=== PATIENT | female | born 1970 | race Caucasian/White ===

== ENCOUNTER → 2016-03-25 | Outpatient (CLI) | payer MEDICARE, MEDICAID ==
[~2016-03-25] MED LIST: ALBU17AE3 IH; AMLO1CAP8 PO; ASP325T PO; CANA100T; CANA100T PO; CATHETER FLUSH 10 ML SYR IV PRN; CEFD300C3 PO; CIPR500T4 PO; FLUT16SP22 NS; GLBR5T; GLIP5TAB13 PO; GUAI600T59 PO; IBP600T1 PO; INSU100C7 SQ; INSU100I29; INSU100V5 SQ; IOHEXOL 350 MG/ML 100 ML (OMNIPAQUE 350) VIAL IV ONE; LEVO500T2 PO; LEVO750T9 PO; LORA10TA7 PO; LOTREL; LRT10T; MECL-106 PO; MECL25TA56 PO; METF1000 PO; METR500T21 PO; MNTL10T; MONT10TA24 PO; MTF500T; NF-ESOM40C; NS 100 ML (IVPB) BAG IV ONE; OMG1KC PO; ONDAN4ODT PO; PERM59LI4 TP; PERM60CR17 TP; PHEN10TA56 PO
--- NOTE | 2016-03-25 13:38 | Diagnostic Imaging Report ---
PROCEDURE: CT abdomen and pelvis with contrast. TECHNIQUE: Multiple contiguous axial images were obtained through the abdomen and pelvis after administration of intravenous contrast. INDICATION: Flank and right lower quadrant pain. CONTRAST: 100 mL of Omnipaque 350 was given intravenously. COMPARISON STUDY: CT scan of the abdomen and pelvis from February 07. FINDINGS: Several new nodules are present in the left lung base. These measure up to 1 cm in size. Somewhat hazy. Previously, there are was a 5 mm nodule on image 6, which is unchanged. Some atelectasis in the left lung base is stable. Fatty infiltration of liver is again identified with no focal abnormalities. The gallbladder is absent. 9 mm lymph node is seen anterior to the right renal vein posterior to the pancreas. Previously this measured 12 mm. The spleen, pancreas, adrenal glands, kidneys appear normal. Mild arterial sclerosis is present. The uterus, adnexal structures and urinary bladder are normal. The bowel loops appear unremarkable. Degenerative changes are present in the spine. IMPRESSION: 1. There has been development of small pulmonary nodules in the left lung base. A previous nodule is unchanged in size. 2. Stable fatty infiltration of the liver. 3. Decreased size of the the lymph node anterior to the right renal vein. Dictated by: Dictated on workstation # [id number]
== END ==
LOC: RAD 12:52
PROVIDERS: ATTEND Family Medicine
DX: R91.8 Other nonspecific abnormal finding of lung field (principal); R10.31 Right lower quadrant pain
CPT/HCPCS: 74177

== ENCOUNTER 2016-04-08 05:47 | Outpatient (CLI) | payer MEDICARE, MEDICAID ==
[~2016-04-08] VITALS: Ht 165.1 cm; Wt 116.3 kg
[~2016-04-08 05:47] MED LIST changes: -CANA100T PO; -CATHETER FLUSH 10 ML SYR IV PRN; -GLIP5TAB13 PO; -INSU100V5 SQ; -IOHEXOL 350 MG/ML 100 ML (OMNIPAQUE 350) VIAL IV ONE; -LORA10TA7 PO; -METF1000 PO; -MONT10TA24 PO; -NS 100 ML (IVPB) BAG IV ONE
[2016-04-08] MEDS ORDERED: METF1000 PO (10:14)
[2016-04-08] MEDS ORDERED: GLIP5TAB13 PO (10:14)
[2016-04-08] MEDS ORDERED: LORA10TA7 PO (10:14)
[2016-04-08] MEDS ORDERED: CANA100T PO (10:14)
[2016-04-08] MEDS ORDERED: INSU100V5 SQ (10:14)
[2016-04-08] MEDS ORDERED: MONT10TA24 PO (10:14)
== END 2016-04-08 10:21 ==
LOC: PREOP 05:47
PROVIDERS: ATTEND Surgery
DX: Z01.818 Encounter for other preprocedural examination (principal)

== ENCOUNTER 2016-04-12 08:40 | Day surgery (SDC) | payer MEDICARE, MEDICAID ==
[~2016-04-12] VITALS: Ht 165.1 cm; Wt 116.3 kg
[~2016-04-12 08:40] MED LIST changes: +CANA100T PO; +GLIP5TAB13 PO; +INSU100V5 SQ; +LORA10TA7 PO; +METF1000 PO; +MONT10TA24 PO
[2016-04-12] MEDS ORDERED: NS IV 500 ML 500 ML ONE (08:56)
[2016-04-12] MEDS ORDERED: NS IV 500 ML 500 ML IV PRN (09:30)
[2016-04-12] MEDS ORDERED: NALOXONE 0.4 MG/ML 1 ML (NARCAN) VIAL IVP PRN (09:30)
[2016-04-12] MEDS ORDERED: FLUMAZENIL (ROMAZICON) 0.1 MG/ML 5 ML VIAL INJ PRN (09:30)
[2016-04-12 09:32] VITALS: BP 143/88
[2016-04-12] MEDS: fentaNYL INJECTION 100 MCG/2 ML AMP IVP PRN ×4 (10:10→10:22)
--- NOTE | 2016-04-12 10:10 | Pre-Op Note & Conscious Sedat ---
Pre-Operative Progress Note H&P Reviewed The H&P was reviewed, patient examined and no changes noted. Date H&P Reviewed: Apr 12, 2016 Time H&P Reviewed: 10:10 Pre-Op Diagnosis: abnormal CT. Right-sided abdominal Conscious Sedation Pre-Proced ASA Class: 2 Airway Mallampati Classification: ([place] appropriate class) I. II. III, IV Lungs Heart ASA score ASA 1: a normal healthy patient ASA 2: a patient with a mild systemic disease (mid diabetes, controlled hypertension, obesity ASA 3: a patient with a severe systemic disease that limits activity (angina , COPD, prior Myocardial infarction) ASA 4: a patient with an incapacitating disease that is a constant threat to life (CHF, renal failure) ASA 5: a moribund patient not expected to survive 24 hrs. (ruptured aneurysm) ASA 6: a declared brain patient whose organs are being harvested. For emergent operations, add the letter E after the classification Grade 2 Sedation Plan: Discussed options with patient/fam Note The patient is an appropriate candidate to undergo the planned procedure, sedation, and anesthesia. The patient immediately re-assessed prior to indication. CHUY BAUTISTA MD Apr 12, 2016 10:10 am
[2016-04-12] MEDS ORDERED: MIDAZOLAM 2 MG/2 ML (VERSED) VIAL ONE ×3 (10:12)
[2016-04-12] MEDS ORDERED: fentaNYL INJECTION 100 MCG/2 ML AMP ONE ×2 (10:12)
[2016-04-12] MEDS: MIDAZOLAM 2 MG/2 ML (VERSED) VIAL IVP PRN ×3 (10:15→10:20)
--- NOTE | 2016-04-12 10:36 | Progress Note-Post Operative ---
Post-Operative Progess Note Pre-Operative Diagnosis abnormal CT. Right-sided abdominal Post-Operative Diagnosis nnormal colonoscopy Post-Op Procedure Note Date of Procedure: Apr 12, 2016 Name of Procedure: colonoscopy to cecum Anesthesia Type sedation CHUY BAUTISTA MD Apr 12, 2016 10:36 am
--- NOTE | 2016-04-12 10:37 | Discharge Inst-Simple/Standard ---
Discharge Inst-Standard Discharge Medications New, Converted or Re-Newed RX: Other Patient Instructions/Follow Up Plan of Care/Instructions/FU: ffollow-up with Dr. Vázquez Activity as Tolerated: Yes Discharge Diet: ADA Diet CHUY BAUTISTA MD Apr 12, 2016 10:37 am
[2016-04-12 11:00] VITALS: BP 137/75
[2016-04-12 11:30] VITALS: BP 120/72
[2016-04-12 11:40] VITALS: BP 120/72
--- NOTE | 2016-04-13 07:41 | PROCEDURE REPORT ---
PROCEDURE PHYSICIAN: CHUY BAUTISTA DATE OF PROCEDURE: 04/12/2016 PROCEDURE: Colonoscopy. SURGEON: Dr. Bautista. INDICATION FOR THE PROCEDURE: This lady has been evaluated for right side abdominal pain. There was thickening of the bowel on a PET CT scan performed as a follow-up on a lung nodule. Therefore, it was felt reasonable to perform colonoscopy. Informed consent was obtained after reviewing the procedure in detail. DESCRIPTION OF PROCEDURE: She was placed in left lateral decubitus position and her vital signs were monitored. Conscious sedation was achieved using Versed and fentanyl. Digital rectal examination was unremarkable. The colonoscope was then introduced into the rectum and advanced all the way up to the cecum. The scope was then withdrawn slowly and the mucosa examined in a systematic fashion. There was no abnormality. She tolerated the procedure well and was taken back to the nursing area in a stable condition. IMPRESSION: 1. Right-sided abdominal pain. 2. Normal colonoscopy. We will treat on the lines of irritable bowel syndrome. Job ID: [id number] Dictated Date: 04/12/2016 10:32:47 Sales Management Intern Date: 04/13/2016 07:39:34 / agustin MORALES
== END 2016-04-12 11:40 | disposition home or self-care (01) ==
LOC: ENDO 08:40
PROVIDERS: ATTEND Surgery
DX: K58.8 Other irritable bowel syndrome (principal); R10.31 Right lower quadrant pain; R91.8 Other nonspecific abnormal finding of lung field; E11.9 Type 2 diabetes mellitus without complications
CPT/HCPCS: 82962; 84703

== ENCOUNTER → 2016-05-07 | Outpatient (CLI) | payer MEDICARE, MEDICAID ==
--- NOTE | 2016-05-07 13:34 | Diagnostic Imaging Report ---
PROCEDURE: CT chest without contrast. TECHNIQUE: Multiple contiguous axial images were obtained through the chest without the use of intravenous contrast. INDICATION: Followup pulmonary nodules. COMPARISON: 12/31/2015. FINDINGS: There is some scarring and pleural-based nodular changes in the left lung base which do not appear to have changed since previous exam. No new pulmonary nodules are demonstrated. The 1.3 cm nodule in the right lower lobe laterally has resolved and now measures 3 mm. The nodule in the right upper lobe previously measuring 10 mm is not visible on today's study. There is some scarring noted along the fissure on the right which was present previously. The 8 mm nodule in the left upper lobe and 4 mm nodule in the right upper lobe apex are not visible today. No mediastinal or hilar adenopathy of pathologic size is demonstrated. No blastic or lytic bony lesions. The adrenal glands are not enlarged. IMPRESSION: 1. Scarring with a small round pulmonary nodule in the left lung base is stable since December 2015. 2. Scattered nodules in the right lower and upper lobe as discussed above have all resolved or decreased markedly in size. No new lesions are demonstrated. Dictated by: Dictated on workstation # [id number]
== END ==
LOC: RAD 12:55
PROVIDERS: ATTEND Internal Medicine Critical Care Medicine
DX: R91.8 Other nonspecific abnormal finding of lung field (principal); E66.01 Morbid (severe) obesity due to excess calories; J18.9 Pneumonia, unspecified organism; J30.2 Other seasonal allergic rhinitis
CPT/HCPCS: 71250

== ENCOUNTER → 2016-06-04 | Outpatient (CLI) | payer MEDICARE, MEDICAID ==
[~2016-06-04] MED LIST changes: +RT-ALBUTEROL SULF 2.5 MG/3 ML PRE-MIX VIAL IH ONE; +RT-ALBUTEROL SULF 2.5 MG/3 ML PRE-MIX VIAL ONE
== END ==
LOC: RT 12:33
PROVIDERS: ATTEND Nurse Practitioner Family
DX: J30.2 Other seasonal allergic rhinitis (principal); R91.8 Other nonspecific abnormal finding of lung field; R06.00 Dyspnea, unspecified; E66.01 Morbid (severe) obesity due to excess calories; Z77.22 Contact with and (suspected) exposure to environmental tobacco smoke (acute) (chronic)
CPT/HCPCS: 94060; 94640

== ENCOUNTER 2016-07-21 19:40 | Outpatient (CLI) | payer MEDICARE, MEDICAID ==
[~2016-07-21 19:40] MED LIST changes: -RT-ALBUTEROL SULF 2.5 MG/3 ML PRE-MIX VIAL IH ONE; -RT-ALBUTEROL SULF 2.5 MG/3 ML PRE-MIX VIAL ONE
== END 2016-07-22 06:52 | disposition home or self-care (01) ==
LOC: SLEEP 19:40
PROVIDERS: ATTEND Nurse Practitioner Family
DX: G47.33 Obstructive sleep apnea (adult) (pediatric) (principal)
CPT/HCPCS: 95810

== ENCOUNTER 2016-08-27 20:57 | Outpatient (CLI) | payer MEDICARE, MEDICAID ==
[~2016-08-27 20:57] MED LIST changes: +PHEN10TA4 PO; -PHEN10TA56 PO
== END 2016-08-28 07:21 | disposition home or self-care (01) ==
LOC: SLEEP 20:57
PROVIDERS: ATTEND Nurse Practitioner Family
DX: G47.33 Obstructive sleep apnea (adult) (pediatric) (principal); E66.01 Morbid (severe) obesity due to excess calories
CPT/HCPCS: 95811

== ENCOUNTER → 2017-05-18 | Outpatient (CLI) | payer MEDICARE, MEDICAID ==
[~2017-05-18] MED LIST changes: -GUAI600T59 PO; +GUAI600T86 PO
--- NOTE | 2017-05-18 11:17 | Diagnostic Imaging Report ---
PROCEDURE: CT chest without contrast. TECHNIQUE: Multiple contiguous axial images were obtained through the chest without the use of intravenous contrast. INDICATION: Follow up lung nodule. COMPARISON: 05/07/2016. FINDINGS: Evaluation of lung dotson again demonstrates punctate 3 mm subpleural micronodule within the lateral margins of the right lower lobe (image 20, series 2). This is stable compared to 05/07/2016 and again show significant interval improvement when compared to 12/31/2015. Also again identified is a 5-6 mm juxtapleural micronodule within the posterior margins of the left lower lobe (image 25, series 2). This is stable compared to 12/31/2015. Punctate micronodules also seen within the lateral margins of the left lower lobe slightly more superiorly and measures 2-3 mm in diameter. This is improved when compared to 5-6 mm on exam dated 12/31/2015. No new pulmonary nodules or masses are seen. There is some scarring and atelectasis within both mid and lower lung dotson. There is, however, no new focal consolidation, pleural effusion, nor pneumothorax. Cardiomediastinal structures show normal heart size. There is no large pericardial effusion. There is mild calcified aortic and coronary atherosclerosis. Note is made of aberrant course of the right subclavian artery, as it courses between the esophagus and thoracic spine. No pathologically enlarged or morphologically abnormal adenopathy is seen within the mediastinum, eufemia, nor axilla. Bony structures show no acute abnormalities. Included portions of the upper abdomen show hepatic steatosis. IMPRESSION: 1. Multiple bilateral micronodules, which are either stable or improved when compared to prior imaging. Followup in December of 2017 is recommended. 2. No new pulmonary nodule or mass. 3. Aberrant right subclavian artery. 4. Hepatic steatosis. Dictated by: Dictated on workstation # [id number]
== END ==
LOC: RAD 10:40
PROVIDERS: ATTEND Nurse Practitioner Family
DX: R91.8 Other nonspecific abnormal finding of lung field (principal); Q27.8 Other specified congenital malformations of peripheral vascular system; K76.0 Fatty (change of) liver, not elsewhere classified
CPT/HCPCS: 71250

== ENCOUNTER → 2017-06-02 | Outpatient (CLI) | payer MEDICARE, MEDICAID ==
[2017-06-02 10:18] LABS: BUN/CREATININE RATIO 21; CREATININE SERUM 0.68 MG/DL (0.60-1.30); GFR ESTIMATED > 60
== END ==
LOC: LAB 09:44
PROVIDERS: ATTEND Family Medicine
DX: E11.9 Type 2 diabetes mellitus without complications (principal)
CPT/HCPCS: 36415; 82565; 84520

== ENCOUNTER → 2017-07-28 | Outpatient (CLI) | payer MEDICARE, MEDICAID ==
[~2017-07-28] MED LIST changes: -METF1000 PO; +METF10002 PO
--- NOTE | 2017-07-28 19:28 | Diagnostic Imaging Report ---
INDICATION: Left forehead lipoma. FINDINGS: Sonographic interrogation of the area of bump of the left forehead was performed. There is a region of hypoechogenicity measuring approximately 4.3 x 0.4 x 2.0 cm. No definite internal vascularity is present. No fluid collection is seen. IMPRESSION: Hypoechoic mass at the area of bump of the left forehead, nonspecific. Continued close clinical followup is recommended. Dictated by: Dictated on workstation # [id number]
== END ==
LOC: RAD 10:43
PROVIDERS: ATTEND Nurse Practitioner Community Health
DX: D17.0 Benign lipomatous neoplasm of skin and subcutaneous tissue of head, face and neck (principal)
CPT/HCPCS: 76536

== ENCOUNTER 2017-09-04 10:50 | Emergency (ER) | payer MEDICARE, MEDICAID ==
[~2017-09-04] VITALS: Ht 165.1 cm; Wt 117.0 kg
[~2017-09-04 10:50] MED LIST changes: +ACHD5005 PO; +EMPA10TA PO; +FLUT9.9S NS; +RT-ALBUINH IH; +SIMV10TA3 PO
--- NOTE | 2017-09-04 11:16 | ED General ---
General Stated Complaint: POST OP EYE SURGERY, EYE SWOLLEN AND RED Source of Information: Patient, EMS Notes Reviewed Exam Limitations: No Limitations History of Present Illness Date Seen by Provider: Sep 04, 2017 Time Seen by Provider: 11:16 Initial Comments The patient had excision of a lump on her left forehead on . This is been there for years after an injury. This morning when she arose her mother noted her to have considerable swelling about the left eye and eyelids. There is no pain. She has had no fever and no purulent drainage. Timing/Duration: 4-6 Hours Allergies and Home Medications Allergies Coded Allergies: Penicillins (Verified Allergy, Unknown, 04/08/16) Home Medications Albuterol Sulfate 1 Puff Puff, 2 PUFF IH Q4H PRN for SHORTNESS OF BREATH, ( Reported) 1 PUFF = 90 MCG Amlodipine Besylate/Benazepril 1 Each Capsule, 1 EACH PO DAILY, (Reported) Empagliflozin 10 Mg Tablet, 10 MG PO DAILY, (Reported) Fluticasone Propionate 9.9 Ml [place].susp, 1 SPRAY NS DAILY, (Reported) 1 SPRAY EACH NARE DAILY Glipizide 5 Mg Tablet, 5 MG PO BID, (Reported) Hydrocodone Bit/Acetaminophen 1 Tab Tab, 1 TAB PO Q4H PRN Prescribed by: TOÑO CHURCHILL on 09/01/17 0904 Insulin Determir 1,000 Units/10 Ml Soln, 60 UNITS SQ BID, (Reported) Loratadine 10 Mg Tablet, 10 MG PO DAILY, (Reported) Metformin HCl 1,000 Mg Tablet, 1,000 MG PO BID, (Reported) Montelukast Sodium 10 Mg Tablet, 10 MG PO DAILY, (Reported) Simvastatin 10 Mg Tablet, 10 MG PO DAILY, (Reported) Patient Home Medication List Home Medication List Reviewed: Yes Review of Systems Constitutional: see HPI EENTM: other (swelling about the left eye and eyelids) Respiratory: no symptoms reported Cardiovascular: no symptoms reported Gastrointestinal: no symptoms reported Genitourinary: no symptoms reported Musculoskeletal: no symptoms reported Skin: no symptoms reported Psychiatric/Neurological: No Symptoms Reported Hematologic/Lymphatic: No Symptoms Reported Immunological/Allergic: no symptoms reported Past Inkcmiw-Xxxhbd-Ktnlym Hx Patient Social History Recent Foreign Travel: No Contact w/Someone Who Travel: No Recent Hopitalizations: No Immunizations Up To Date Tetanus Booster (TDap): Less than 5yrs PED Vaccines UTD: No Date of Influenza Vaccine: Dec 20, 2016 Seasonal Allergies Seasonal Allergies: Yes Past Medical History Gallbladder Asthma, Chronic Bronchitis Hypertension Traumatic Brain Injury, Vertigo Reproductive Disorders: No HIGH REACH OPERATOR History: Hysterectomy Sexually Transmitted Disease: No Gastroesophageal Reflux Arthritis Diabetes, Non-Insulin dep Loss of Vision: Bilateral Hearing Impairment: Denies Recent Skin Changes Adverse Reaction/Blood Tranf: No (N/A) Family Medical History No Pertinent Family Hx, Diabetes Physical Exam Vital Signs Capillary Refill : General Appearance: No Apparent Distress, WD/WN HEENT: Normal ENT Inspection Neck: Full Range of Motion, Normal Inspection, Non Tender, Supple, Carotid Bruit Respiratory: Chest Non Tender, Lungs Clear, Normal Breath Sounds, No Accessory Muscle Use, No Respiratory Distress Cardiovascular: Regular Rate, Rhythm, No Edema, No Gallop, No JVD, No Murmur Comments There is a fluctuant hematoma in the left forehead at the site of the excision. The incision is clean and the sutures look good. There is edema of the upper and lower lids and the suborbital area. There is no warmth in this area and it is not tender. There is no erythema of the conjunctiva. Progress/Results/Core Measures Suspected Sepsis SIRS Temperature: Pulse: Respiratory Rate: Blood Pressure / Mean: Results/Orders Vital Signs/I&O Capillary Refill : Departure Impression Primary Impression: Periorbital edema of left eye Disposition: 01 HOME, SELF-CARE Condition: Stable/Unchanged Departure-Patient Inst. Decision time for Depature: 11:25 Referrals: [facility] (PCP) Primary Care Physician KATHLEEN ALVES (Family) Primary Care Physician Add. Discharge Instructions: This swelling is nonthreatening and is a function of the swelling and bleeding under the skin at the level of your surgery. At this point and ice pack is likely not to be of any particular value. Over the next several days the swelling will begin to diminish. Expect some discoloration to develop. LYLE BURGOS MD Sep 04, 2017 11:16
[2017-09-04 11:35] VITALS: BP 143/87
== END 2017-09-04 11:34 | disposition home or self-care (01) ==
LOC: EDUNIT# 10:50 → ER 10:53
DX: H02.845 Edema of left lower eyelid (principal); J45.909 Unspecified asthma, uncomplicated; I10 Essential (primary) hypertension; K21.9 Gastro-esophageal reflux disease without esophagitis; M19.90 Unspecified osteoarthritis, unspecified site; Z87.828 Personal history of other (healed) physical injury and trauma; Z90.710 Acquired absence of both cervix and uterus; Z88.0 Allergy status to penicillin; Z79.84 Long term (current) use of oral hypoglycemic drugs
CPT/HCPCS: 99284

== ENCOUNTER → 2017-12-05 | Outpatient (CLI) | payer MEDICARE, MEDICAID ==
[~2017-12-05] MED LIST changes: +METF-399 PO; -METF10002 PO
--- NOTE | 2017-12-05 12:19 | Diagnostic Imaging Report ---
PROCEDURE: CT chest without contrast. TECHNIQUE: Multiple contiguous axial images were obtained through the chest without the use of intravenous contrast. INDICATION: Lung nodules, followup. COMPARISON: Comparison is made with prior CT chest from 05/18/2017. FINDINGS: No axillary lymphadenopathy is detected. Mediastinum and eufemia are unremarkable. No pericardial or pleural fluid is detected. Previously noted nodule lateral portion of right lower lobe is not well-seen on today's study. Nodule in the subpleural location of the left lower lobe, image 29 series 2 is seen and stable at 5 mm. Tiny nodules more cephalad in the left upper lobe appear stable. There are some areas of subsegmental atelectasis in the right upper lobe and left lower lobe. Upper abdomen is unremarkable. IMPRESSION: Stable bilateral pulmonary nodules when compared with prior examination from 05/18/2017. Dictated by: Dictated on workstation # [id number]
== END ==
LOC: RAD 11:10
PROVIDERS: ATTEND Nurse Practitioner Family
DX: R91.8 Other nonspecific abnormal finding of lung field (principal)
CPT/HCPCS: 71250

== ENCOUNTER → 2017-12-26 | Outpatient (CLI) | payer MEDICARE, MEDICAID ==
[2017-12-26 12:24] LABS: ABG BASE EXCESS 1.6 MMOL/L (-2.5-2.5); ABG OXYGEN SATURATION 98 % (94-100); ABG PCO2 39 MMHG (35-45); ABG PH 7.43 (7.37-7.43); ABG PO2 82 MMHG (79-93); ABG TCO2 26.9 MMOL/L (21.0-31.0)
[2017-12-26 12:25] LABS: ALLENS TEST POSITIVE; INSPIRED O2 N; PATIENT TEMP 97.2; VENTILATOR NO
== END ==
LOC: LAB 11:55
PROVIDERS: ATTEND Nurse Practitioner Family
DX: R05 Cough (principal); J30.2 Other seasonal allergic rhinitis; R06.00 Dyspnea, unspecified
CPT/HCPCS: 36600; 82805

== ENCOUNTER → 2017-12-30 | Outpatient (CLI) | payer MEDICARE, MEDICAID ==
[2017-12-30 09:53] LABS: BASOPHILS % (AUTO) 0 % (0-10); EOSINOPHILS % (AUTO) 0 % (0-10); HEMATOCRIT 40 % (35-52); HEMOGLOBIN 13.7 G/DL (11.5-16.0); LYMPHOCYTES # (AUTO) 2.6 X 10^3 (1.0-4.0); LYMPHOCYTES % (AUTO) 25 % (12-44); MEAN CORPUSCULAR HEMOGLOBIN 30 PG (25-34); MEAN CORPUSCULAR HGB CONC 34 G/DL (32-36); MEAN CORPUSCULAR VOLUME 87 FL (80-99); MEAN PLATELET VOLUME 9.8 FL (7.4-10.4); MONOCYTES # (AUTO) 0.6 X 10^3 (0.0-1.0); MONOCYTES % (AUTO) 6 % (0-12); NEUTROPHILS # (AUTO) 7.3 X 10^3 (1.8-7.8); NEUTROPHILS % (AUTO) 69 % (42-75); PLATELET COUNT 219 10^3/uL (130-400); RED BLOOD COUNT 4.61 10^6/uL (4.35-5.85); RED CELL DISTRIBUTION WIDTH 14.2 % (10.0-14.5); WHITE BLOOD COUNT 10.6 10^3/uL (4.3-11.0)
[2017-12-31 07:27] LABS: ALTERNARIA MOLD RAST <0.35 kU/L (<0.35); RAGWEED RAST <0.35 kU/L (<0.35)
== END ==
LOC: LAB 09:28
PROVIDERS: ATTEND Nurse Practitioner Family
DX: J30.2 Other seasonal allergic rhinitis (principal); R06.00 Dyspnea, unspecified; R05 Cough
CPT/HCPCS: 36415; 82785; 85025; 86003

== ENCOUNTER → 2018-03-30 | Outpatient (CLI) | payer MEDICARE, MEDICAID ==
[~2018-03-30] MED LIST changes: +METR-145 PO; -METR500T21 PO
--- NOTE | 2018-03-30 10:29 | Diagnostic Imaging Report ---
INDICATION: Abnormal fullness felt at the anterior forehead. TECHNIQUE: Multiple real time bingham scale sonographic images were obtained of the soft tissues of forehead in the area of palpable concern. CORRELATION STUDY: 07/28/2017 FINDINGS: There is an abnormal hypoechoic, slightly complex-appearing mass at the area of the fullness. This is nonspecific and may reflect a focal fluid collection measuring approximately 3 x 2.5 x 0.7 cm. This does appear changed when compared to prior study. IMPRESSION: 1.Change in the appearance of the soft tissues of the frontal scalp. There is a somewhat more hypoechoic masslike area in the area of palpable abnormality. Nonspecific, could reflect a complex fluid collection. If further assessment desired, aspiration and/or MRI and/or CT imaging would be recommended. Dictated by: Dictated on workstation # [id number]
== END ==
LOC: RAD 09:00
PROVIDERS: ATTEND Nurse Practitioner Community Health
DX: R22.0 Localized swelling, mass and lump, head (principal)
CPT/HCPCS: 76536

== ENCOUNTER 2018-04-24 05:38 | Outpatient (CLI) | payer MEDICARE, MEDICAID ==
[~2018-04-24] VITALS: Ht 165.1 cm; Wt 124.8 kg
== END 2018-04-24 09:10 | disposition home or self-care (01) ==
LOC: PREOP 05:38
PROVIDERS: ATTEND Surgery
DX: Z01.818 Encounter for other preprocedural examination (principal)
CPT/HCPCS: 87081

== ENCOUNTER 2018-04-27 06:00 | Day surgery (SDC) | payer MEDICARE, MEDICAID ==
[~2018-04-27] VITALS: Ht 165.1 cm; Wt 124.8 kg
[~2018-04-27 06:00] MED LIST changes: +FLUT1BLS IH; +INSU100V16 SQ
[2018-04-27 06:20] VITALS: BP 137/74
[2018-04-27] MEDS ORDERED: FAMOTIDINE 20MG/2ML IV (PEPCID) ONE (06:48)
[2018-04-27] MEDS ORDERED: CLINDAMYCIN 600 MG/50 ML IVPB 50 ML IV ONE ×2 (06:48→07:00)
[2018-04-27] MEDS ORDERED: LACTATED RINGERS 1,000 ML IV PRN (06:49)
[2018-04-27] MEDS ORDERED: SEVOFLURANE (ULTANE) 15 ML INHAL SOLN ONE ×2 (06:56→08:23)
[2018-04-27] MEDS ORDERED: LIDOCAINE PF 2% 5 ML (XYLOCAINE) VIAL ONE (06:56)
[2018-04-27] MEDS ORDERED: proPOfol 200 MG/20 ML (DIPRIVAN) VIAL IV ONE (06:56)
[2018-04-27] MEDS ORDERED: fentaNYL INJECTION 100 MCG/2 ML AMP ONE (06:57)
[2018-04-27] MEDS ORDERED: MIDAZOLAM 2 MG/2 ML (VERSED) VIAL ONE (06:57)
[2018-04-27] MEDS ORDERED: FAMOTIDINE 20MG/2ML IV (PEPCID) IV ONE (07:00)
[2018-04-27] MEDS ORDERED: BUP/EPI 0.5% 1:200,000 (SENSORCAINE) 30 ML VIAL ONE (07:12)
[2018-04-27] MEDS ORDERED: LIDOCAINE 1% INJ 20 ML 20 ML VIAL ONE (07:12)
[2018-04-27] MEDS ORDERED: CATHETER FLUSH 10 ML SYR IV PRN (07:15)
--- NOTE | 2018-04-27 07:37 | Progress Note-Pre Operative ---
Pre-Operative Progress Note H&P Reviewed The H&P was reviewed, patient examined and no changes noted. Date Seen by Provider: Apr 27, 2018 Time Seen by Provider: 07:25 Date H&P Reviewed: Apr 27, 2018 Time H&P Reviewed: 07:25 Pre-Operative Diagnosis: forehead mass TOÑO CHURCHILL DO Apr 27, 2018 07:37
[2018-04-27] MEDS ORDERED: ONDANSETRON 4 MG/2 ML (SDV) Z0FRAN ONE (08:08)
[2018-04-27] MEDS ORDERED: BACITRACIN OINTMENT 28 GM TUBE ONE (08:24)
--- NOTE | 2018-04-27 08:31 | Progress Note-Post Operative ---
Post-Operative Progess Note Surgeon (s)/Wood Car Builder (s) Surgeon TOÑO CHURCHILL DO Wood Car Builder: na Pre-Operative Diagnosis forehead mass Post-Operative Diagnosis same Procedure & Operative Findings Date of Procedure 04/27/18 Procedure Performed/Findings excision forehead mass 2.3x3.1cm Anesthesia Type gen Estimated Blood Loss Estimated blood loss (mL): min Specimens/Packing Specimens Removed mass TOÑO CHURCHILL DO Apr 27, 2018 08:31
--- NOTE | 2018-04-27 08:33 | Discharge Inst-Simple/Standard ---
Discharge Inst-Standard Patient Instructions/Follow Up Plan of Care/Instructions/FU: 12-14 days [place] Activity as Tolerated: Yes (keep area clean and dry.) Discharge Diet: Regular Diet Other Inst to Patient Follow up Appt: Make appointment for 12-14 days for suture removal. Instructions: No lifting greater than 10 pounds. No strenuous activity. May shower in 24 hours, no tub bath or soaking. Use incentive spirometer at home as directed. No Smoking Skin/Wound Care: May remove bandages. Keep area clean and dry. Symptoms to Report: Appetite Changes, Extremity Discoloration, Numbness/Tingling, Swelling Increased , Bleeding Excessive, Eyesight Changes, Pain Increased, Urine Color Change, Constipation(Persistent), Fever over 101 degree F, Pain/Pressure in chest, Urinating Difficulty, Cough Up/Vomit Blood, Heart Beat Irreg/Pounding, Pain/ Pressure in jaw, Vaginal Bleeding Increase, Cramps in feet or legs, Lightheadedness, Pain/Pressure in shoulder, Diarrhea(Persistent), Memory Changes Suddenly, Questions/Concerns, Weight gain consecutive days, Dizziness/ Fainting, Nausea/Vomiting, Shortness of Breath, Weight gain over 2 pounds If questions or concerns contact your physician Or seek help at emergency department. TOÑO CHURCHILL DO Apr 27, 2018 08:33
[2018-04-27] MEDS ORDERED: morphine INJ 10 MG/ML 1ML (SYR OR VIAL) IVP ONE (08:45)
[2018-04-27] MEDS ORDERED: ONDANSETRON 4 MG/2 ML (SDV) Z0FRAN IVP PRN (08:45)
[2018-04-27] MEDS ORDERED: MEPERIDINE (DEMEROL) INJ 50 MG/ML IVP ONE (08:45)
--- NOTE | 2018-04-27 09:24 | OPERATIVE REPORT ---
DATE OF SERVICE: 04/27/2018 PREOPERATIVE DIAGNOSIS: Forehead mass. POSTOPERATIVE DIAGNOSIS: Forehead mass. PROCEDURE: Excision forehead mass, 2.3 x 3.1 cm. SURGEON: Toño Esparza DO ANESTHESIA: General. ESTIMATED BLOOD LOSS: Minimal. COMPLICATIONS: None. INDICATIONS: The patient is a 48-year-old female with recurrent forehead mass. She understands risks and benefits of procedure and wished to proceed with procedure. Consent was signed on the chart. DESCRIPTION OF PROCEDURE: The patient was taken to the operating suite. She was prepped and draped in sterile fashion. Surgical pause was performed. Local anesthetic of 5 mL of 1% lidocaine and 0.5% Marcaine in 50:50 used to anesthetize the area. A skin incision was made in an elliptical incision. The subcutaneous tissue was made, removing the mass down to the muscle. The masses in the subcutaneous layer. Overall, dimensions 2.3 x 3.1 cm. The wound was then irrigated with copious amounts of irrigation. Hemostasis was achieved. The skin was then closed using 4-0 Prolene in simple interrupted fashion and antibiotic ointment was placed over the incision after it was washed and dried. The patient tolerated procedure well without any complications. She was taken to recovery room in stable condition. Job ID: [id number] DocumentID: [id number] Dictated Date: 04/27/2018 08:36:23 Drag Down Date: 04/27/2018 09:23:33 Dictated By: TOÑO ESPARZA DO
[2018-04-27 09:35] VITALS: BP 122/72
[2018-04-27 10:05] VITALS: BP 119/70
[2018-04-27 10:15] VITALS: BP 119/70
--- NOTE | 2018-04-27 16:15 | Anesthesia-General Post-Op ---
General Patient Condition Mental Status/LOC: Same as Preop Cardiovascular: Satisfactory Nausea/Vomiting: Absent Respiratory: Satisfactory Pain: Controlled Complications: Absent Post Op Complications Complications None Follow Up Care/Instructions Patient Instructions None needed. Anesthesia/Patient Condition Patient Condition Patient was seen this morning after the procedure and she was doing well, no complaints, stable vital signs, no apparent adverse anesthesia problems. HU PENA DO Apr 27, 2018 16:15
== END 2018-04-27 10:50 | disposition home or self-care (01) ==
LOC: SDC 06:00
PROVIDERS: ATTEND Surgery
DX: D17.0 Benign lipomatous neoplasm of skin and subcutaneous tissue of head, face and neck (principal); L92.3 Foreign body granuloma of the skin and subcutaneous tissue; Z18.89 Other specified retained foreign body fragments; I10 Essential (primary) hypertension; E11.9 Type 2 diabetes mellitus without complications; J45.909 Unspecified asthma, uncomplicated; K21.9 Gastro-esophageal reflux disease without esophagitis; G47.33 Obstructive sleep apnea (adult) (pediatric); E66.01 Morbid (severe) obesity due to excess calories; Z68.42 Body mass index [BMI] 45.0-49.9, adult; Z79.4 Long term (current) use of insulin; Z79.899 Other long term (current) drug therapy
CPT/HCPCS: 82962; 84703

== ENCOUNTER → 2018-06-26 | Outpatient (CLI) | payer MEDICARE, MEDICAID ==
--- NOTE | 2018-06-26 13:20 | Diagnostic Imaging Report ---
PROCEDURE: CT chest without contrast. TECHNIQUE: Multiple contiguous axial images were obtained through the chest without the use of intravenous contrast. Auto Exposure Controls were utilized during the CT exam to meet ALARA standards for radiation dose reduction. INDICATION: Pulmonary nodules, follow-up. Correlation is made with prior CT chest from 12/05/2017. FINDINGS: No axillary lymphadenopathy is seen. No definite mediastinal or hilar abnormality is seen. There are coronary arterial calcifications. No pericardial or pleural fluid is detected. Subpleural nodule in left lower lobe on image 18 is stable at 5 mm. There is some persistent scarring in the left lower lobe, similar to prior exam. There appears to be some right upper lobe scarring as well, unchanged. No new abnormality is detected. Upper abdomen is unremarkable. IMPRESSION: Stable CT chest when compared with exam from 12/05/2017. Dictated by: Dictated on workstation # [id number]
== END ==
LOC: RAD 10:57
PROVIDERS: ATTEND Nurse Practitioner Family
DX: R91.8 Other nonspecific abnormal finding of lung field (principal)
CPT/HCPCS: 71250

== ENCOUNTER → 2021-07-14 | Outpatient (CLI) | payer MEDICARE, MEDICAID ==
[~2021-07-14] MED LIST changes: +AMLO-77 PO; -AMLO1CAP8 PO; -CIPR500T4 PO; +CIPR500T5 PO; -MECL-106 PO; +MECL-149 PO; +MONT-40 PO; -MONT10TA24 PO; +RT-ALBUTEROL SULF 2.5 MG/3 ML PRE-MIX VIAL INH ONE; +SIMV10TA26 PO; -SIMV10TA3 PO
== END ==
LOC: RT 09:15
PROVIDERS: ATTEND Nurse Practitioner Family
DX: J45.30 Mild persistent asthma, uncomplicated (principal)

== ENCOUNTER 2022-09-16 14:15 | Inpatient (IN) | payer MEDICARE, MEDICAID ==
[~2022-09-16] VITALS: Ht 165 cm; Wt 122.0 kg
[2022-09-16] VITALS (7 sets, daily range): BP systolic 95–113; BP diastolic 59–69
[~2022-09-16 14:15] MED LIST changes: +ALBU8.5H6 IH; -FLUT9.9S NS; +FLUT9.9S NSEACH; -INSU100I29; +INSU100I30; -RT-ALBUINH IH; -RT-ALBUTEROL SULF 2.5 MG/3 ML PRE-MIX VIAL INH ONE
--- NOTE | 2022-09-16 14:24 | ED Abdominal Pain ---
General Chief Complaint: Abdominal/GI Problems Stated Complaint: ABD PAIN | LOWER BACK PAIN History of Present Illness Date Seen by Provider: Sep 16, 2022 Time Seen by Provider: 14:23 Initial Comments Patient is a 52-year-old female who I suspect has a history of intellectual disability, presents to the emergency room with a chief complaint of lower abdominal pain. Patient states that she has had flulike symptoms over the course of the last week. She has had congestion, cough, nausea and diarrhea. She states the diarrhea is stopped today, she had a normal bowel movement this morning. She states she thinks it may burn a little when she urinates. She is not nauseous. Her sister accompanies her and states that the pain started this afternoon. The patient had a scheduled follow-up appointment with her primary care physician however when her sister saw that she appeared to be in so much pain they decided to come to the emergency room. Only prior abdominal surgery is a cholecystectomy. She denies known fevers or chills. Nothing makes the pain any better or any worse. She did take 1 Tylenol at 1230 this afternoon without any relief of symptoms. She states the pain is located in the left lower quadrant and seems to radiate into her back. Sister states her abdomen looks distended. Patient states she does not know if she has ever had a kidney stone. Timing/Duration: 1-3 Hours Severity/Quality: Severe, Sharp Location: LLQ Radiation: Back Activities at Onset: None Allergies and Home Medications Allergies Coded Allergies: Penicillins (Verified Allergy, Mild, RASH AROUND MOUTH, 04/24/18) Patient Home Medication List Home Medication List Reviewed: Yes Acetaminophen (Tylenol Extra Strength) 500 Mg Tablet, 1,000 MG PO Q8H PRN for PAIN-MILD (1-4), (Reported) Entered as Reported by: QUAN BOGGS on 09/17/22 1141 Last Action: Reviewed Albuterol Sulfate (Ventolin Hfa) 90 Mcg Hfa.aer.ad, 2 PUFF IH Q4H PRN for SHORTNESS OF BREATH, (Reported) Entered as Reported by: VALERIE MON on 08/30/17 1421 Last Action: Reviewed Amoxicillin (Amoxicillin) 875 Mg Tablet, 875 MG PO BID Prescribed by: JILLIAN SCHMIDT on 09/18/22 1147 Aspirin (Aspirin EC) 325 Mg Tablet.dr, 325 MG PO DAILY, (Reported) Entered as Reported by: QUAN BOGGS on 09/17/221140 Last Action: Reviewed Celecoxib (Celecoxib) 200 Mg Capsule, 400 MG PO DAILY, (Reported) Entered as Reported by: QUAN BOGGS on 09/17/221140 Last Action: Reviewed Dulaglutide (Trulicity) 4.5 Mg/0.5 Ml Pen.injctr, 4.5 MG SQ MON, (Reported) Entered as Reported by: QUAN BOGGS on 09/17/221140 Last Action: Reviewed Empagliflozin/Metformin HCl (Synjardy Xr 10-1,000 mg Tablet) 10 Mg-1,000 Mg Tab.bp.24h, 2 EA PO DAILY, (Reported) Entered as Reported by: QUAN BOGGS on 09/17/221140 Last Action: Reviewed Fexofenadine HCl (Fexofenadine HCl) 180 Mg Tablet, 180 MG PO DAILY, (Reported) Entered as Reported by: QUAN BOGGS on 09/17/221140 Last Action: Reviewed Fluticasone Furoate (Arnuity Ellipta) 200 Mcg Blst.w.dev, 1 INH PUFF DAILY, (Reported) Entered as Reported by: QUAN BOGGS on 09/17/221140 Last Action: Reviewed Fluticasone Propionate (Flonase Allergy Relief) 50 Mcg/Actuation [place].susp, 1 SPRAY NSEACH DAILY PRN for CONGESTION, (Reported) Entered as Reported by: VALERIE MON on 08/30/17 1421 Last Action: Reviewed Hydrochlorothiazide (Hydrochlorothiazide) 25 Mg Tablet, 25 MG PO DAILY, (Reported) Entered as Reported by: QUAN BOGGS on 09/17/221140 Last Action: Reviewed Hydrocodone/Acetaminophen (Hydrocodone-Acetamin 7.5-325) 7.5 Mg-325 Mg Tablet, 1 EACH PO Q4H PRN for PAIN-BREAKTHROUGH Prescribed by: JILLIAN SCHMIDT on 09/18/221144 Insulin Degludec (Tresiba Flextouch U-200) 200 Unit/Ml (3 Ml) Insuln.pen, 50 UNITS SC DAILY, (Reported) Entered as Reported by: QUAN BOGGS on 09/17/221140 Last Action: Reviewed Insulin Lispro (Insulin Lispro Kwikpen U-100) 100 Unit/Ml Insuln.pen, 10 UNITS SC 0800,1200 W/MEAL, (Reported) Entered as Reported by: QUAN BOGGS on 09/17/22 114 Last Action: Reviewed Lisinopril (Lisinopril) 40 Mg Tablet, 40 MG PO DAILY, (Reported) Entered as Reported by: QUAN BOGGS on 09/17/22 114 Last Action: Reviewed Montelukast Sodium (Montelukast Sodium) 10 Mg Tablet, 10 MG PO HS, (Reported) Entered as Reported by: VALERIE MON on 04/08/16 1014 Last Action: Reviewed Mv-Mn/Folic Acid/Calcium/Vit K (Women's 50 Plus Multivit Tab) 400 Mcg-500 Mg Calcium-20 Mcg Tablet, 1 EACH PO DAILY, (Reported) Entered as Reported by: QUAN BOGGS on 09/17/22 114 Last Action: Reviewed Omeprazole (Omeprazole) 20 Mg Capsule.dr, 20 MG PO DAILY, (Reported) Entered as Reported by: QUAN BOGGS on 09/17/22 114 Last Action: Reviewed Simvastatin (Simvastatin) 10 Mg Tablet, 10 MG PO HS, (Reported) Entered as Reported by: VALERIE MON on 08/30/17 1426 Last Action: Reviewed Trazodone HCl (Trazodone HCl) 50 Mg Tablet, 50 MG PO HS PRN for SLEEP, (Reported) Entered as Reported by: QUAN BOGGS on 09/17/22 114 Last Action: Reviewed Discontinued Medications Amlodipine Besylate/Benazepril (Amlodipine-Benazepril 5-20 mg) 1 Each Capsule, 1 EACH PO DAILY, (Reported) Discontinued Reason: No Longer Taking Entered as Reported by: LEV ROCHA on 02/08/16 1916 Last Action: Discontinued Fluticasone/Vilanterol (Breo Ellipta 200-25 Mcg INH) 1 Each Blst.w.dev, 1 EACH IH DAILY, (Reported) Discontinued Reason: No Longer Taking Entered as Reported by: VALERIE MON on 04/24/18 0904 Last Action: Discontinued Glipizide (Glipizide) 5 Mg Tablet, 5 MG PO BID, (Reported) Discontinued Reason: No Longer Taking Entered as Reported by: VALERIE MON on 04/08/16 1014 Last Action: Discontinued Hydrocodone Bit/Acetaminophen (Lortab 5 Mg Tablet) 1 Tab Tab, 1 TAB PO Q4H PRN Discontinued Reason: No Longer Taking Prescribed by: TOÑO CHURCHILL on 09/01/17 0904 Last Action: Discontinued Insulin Aspart (Novolog) 100 Unit/1 Ml Susp, 20 UNIT SQ AC, (Reported) Discontinued Reason: No Longer Taking Entered as Reported by: VALERIE MON on 04/24/18 0852 Last Action: Discontinued Insulin Determir (Levemir) 1,000 Units/10 Ml Soln, 72 UNITS SQ BID, (Reported) Discontinued Reason: No Longer Taking Entered as Reported by: VALERIE MON on 04/08/16 1014 Last Action: Discontinued Loratadine (Loratadine) 10 Mg Tablet, 10 MG PO DAILY, (Reported) Discontinued Reason: No Longer Taking Entered as Reported by: VALERIE MON on 04/08/16 101 Last Action: Discontinued Metformin HCl (Metformin HCl) 1,000 Mg Tablet, 1,000 MG PO BID, (Reported) Discontinued Reason: No Longer Taking Entered as Reported by: VALERIE MON on 04/08/16 1014 Last Action: Discontinued Review of Systems Review of Systems Constitutional: see HPI EENTM: No Symptoms Reported Respiratory: No Symptoms Reported Cardiovascular: No Symptoms Reported Gastrointestinal: Abdominal Pain Genitourinary: Burning Musculoskeletal: back pain (left flank) Skin: no symptoms reported Psychiatric/Neurological: Anxiety All Other Systems Reviewed Negative Unless Noted: Yes Past Gbelzfx-Smtaac-Etesam Hx Immunizations Up To Date Tetanus Booster (TDap): Less than 5yrs PED Vaccines UTD: No Seasonal Allergies Seasonal Allergies: Yes Past Medical History Surgeries: Yes (GALLBLADDER SURGERY, HEART CATH, COLONOSCOPY, LIPOMA) Gallbladder Respiratory: Yes Asthma, Chronic Bronchitis Cardiac: Yes Hypertension Neurological: Yes Traumatic Brain Injury, Vertigo Reproductive Disorders: No [employer] SU[employer] History: Hysterectomy Sexually Transmitted Disease: No Genitourinary: No Gastrointestinal: Yes Gastroesophageal Reflux Musculoskeletal: Yes (KNEE) Arthritis Endocrine: Yes Diabetes, Insulin dep HEENT: Yes (GLASSES) Loss of Vision: Bilateral Hearing Impairment: Denies Cancer: No Psychosocial: No Integumentary: No Recent Skin Changes Blood Disorders: No Adverse Reaction/Blood Tranf: No (N/A) Family Medical History No Pertinent Family Hx, Diabetes Physical Exam Vital Signs Vital Signs - First Documented 09/16/22 14:18 Temp 36.8 Pulse 87 Resp 22 B/P (MAP) 147/88 (107) Pulse Ox 99 O2 Delivery Room Air Capillary Refill : Height/Weight/BMI Height: 5'5.00" Weight: 275lbs. 3.0oz. 124.395873ie; 45.8 BMI Method:Stated General Appearance: moderate distress, obese HEENT: PERRL/EOMI Respiratory: lungs clear, normal breath sounds, no respiratory distress, no accessory muscle use Cardiovascular: regular rate, rhythm Gastrointestinal: normal bowel sounds, distended, tenderness (diffusely but more localized in the LLQ; tenderness to light palpation; no overlying rashes) Extremities: normal range of motion Neurologic/Psychiatric: alert Skin: normal color, diaphoresis Progress/Results/Core Measures Results/Orders Lab Results Laboratory Tests Test 09/16/22 14:25 09/16/22 15:27 Range/Units White Blood Count 13.7 H 4.3-11.0 10^3/uL Red Blood Count 5.39 H 3.80-5.11 10^6/uL Hemoglobin 15.8 11.5-16.0 g/dL Hematocrit 48 35-52 % Mean Corpuscular Volume 89 80-99 fL Mean Corpuscular Hemoglobin 29 25-34 pg Mean Corpuscular Hemoglobin Concent 33 32-36 g/dL Red Cell Distribution Width 14.1 10.0-14.5 % Platelet Count 280 130-400 10^3/uL Mean Platelet Volume 9.8 9.0-12.2 fL Immature Granulocyte % (Auto) 0 % Neutrophils (%) (Auto) 73 42-75 % Lymphocytes (%) (Auto) 21 12-44 % Monocytes (%) (Auto) 5 0-12 % Eosinophils (%) (Auto) 0 0-10 % Basophils (%) (Auto) 0 0-10 % Neutrophils # (Auto) 9.9 H 1.8-7.8 10^3/uL Lymphocytes # (Auto) 2.9 1.0-4.0 10^3/uL Monocytes # (Auto) 0.7 0.0-1.0 10^3/uL Eosinophils # (Auto) 0.1 0.0-0.3 10^3/uL Basophils # (Auto) 0.0 0.0-0.1 10^3/uL Immature Granulocyte # (Auto) 0.1 0.0-0.1 10^3/uL Sodium Level 140 135-145 MMOL/L Potassium Level 4.1 3.6-5.0 MMOL/L Chloride Level 99 98-107 MMOL/L Carbon Dioxide Level 26 21-32 MMOL/L Anion Gap 15 H 5-14 MMOL/L Blood Urea Nitrogen 13 7-18 MG/DL Creatinine 0.96 0.60-1.30 MG/DL Estimat Glomerular Filtration Rate 72 BUN/Creatinine Ratio 14 Glucose Level 183 H 70-105 MG/DL Calcium Level 10.3 H 8.5-10.1 MG/DL Urine Color YELLOW Urine Clarity CLOUDY Urine pH 6.0 5-9 Urine Specific [place] 1.010 L 1.016-1.022 Urine Protein NEGATIVE NEGATIVE Urine Glucose (UA) 3+ H NEGATIVE Urine Ketones NEGATIVE NEGATIVE Urine Nitrite POSITIVE H NEGATIVE Urine Bilirubin NEGATIVE NEGATIVE Urine Urobilinogen 0.2 < = 1.0 MG/DL Urine Leukocyte Esterase NEGATIVE NEGATIVE Urine RBC (Auto) NEGATIVE NEGATIVE Urine RBC NONE /HPF Urine WBC 2-5 /HPF Urine Squamous Epithelial Cells 2-5 /HPF Urine Crystals NONE /LPF Urine Bacteria MODERATE H /HPF Urine Casts NONE /LPF Urine Mucus NEGATIVE /LPF Urine Culture Indicated YES Urine Test NEGATIVE NEGATIVE Micro Results Microbiology 09/16/22 Urine Culture - Final, Complete Escherichia coli Gram Pos Mixed Bacterial Ca My Orders Orders - SOBEIDA TAYLOR MD Ed Iv/Invasive Line Start (09/16/22 14:33) Cbc With Automated Diff (09/16/22 14:33) Basic Metabolic Panel (09/16/22 14:33) Ua Culture If Indicated (09/16/22 14:33) Ketorolac Injection (Toradol Injection) (09/16/22 14:45) Ns Iv 1000 Ml (Sodium Chloride 0.9%) (09/16/22 15:15) Ns Iv 1000 Ml (Sodium Chloride 0.9%) (09/16/22 15:40) Urine Culture (09/16/22 15:27) Ceftriaxone Iv/Im (Rocephin Iv/Im) (09/16/22 16:30) Ct Abd/Pelvis Wo(Kidney Stone) (09/16/22 16:22) Fentanyl Inj (Sublimaze Injection) (09/16/22 16:30) Lidocaine/Epi 1% 1:100,000 (Xylocaine /E (09/16/22 17:22) Medications Given in ED Vital Signs/I&O 09/16/22 09/16/22 14:18 17:30 Temp 36.8 Pulse 87 102 Resp 22 20 B/P (MAP) 147/88 (107) 116/69 Pulse Ox 99 96 O2 Delivery Room Air Room Air Progress Progress Note #1: Time: 16:22 Progress Note Labs reviewed, will order CT abdomen and pelvis to rule out diverticulitis/other acute pathology. Progress Note #2: Time: 16:52 Progress Note Patient seen and evaluated by me. Eval includes physical exam (limited due to body habitus/obesity) CBC, BMP, UA and CT abdomen and pelvis without contrast. Pertinent physical exam findings, morbidly obese female, intellectually challenged with child like demeanor, crying for her momma. Lungs clear, heart regulat. Abdomen significant tenderness to left lower abdomen. Difficult to determine rebound or involuntary guarding due to pannus. DDx based on H&P includes diverticulitis, pyelonephritis, renal stone. Labs independently reviewed and interpreted by me. CBC shows WBC of 13.7 with no significant leftward shift. BMP reflects hyperglycemia with sugar of 187, otherwise normal. UA shows 3+ glucose, +nitrite, 2-5 WBC and 2-[address] abdomen abd pelvis read by radiology shows findings consistent with acute appendicitis. Patient treated with IVF (NS) and fentanyl 50mcg with zofran 4mg. Case was discussed with Dr Nevarez (on for general surgery) who states that he will go ahead and take the patient to the OR this afternoon. NPO status around 11am. I have updated the patient and family at the bedside. They are agreeable to the plan of care. Diagnostic Imaging Diagonstic Imaging: CT Comments [facility] [place], [place] NAME: SUMMER SRINIVASAN MED REC#: [id number] PT STATUS: REG ER : 1970 PHYSICIAN: SOBEIDA TAYLOR MD ADMIT DATE: 09/16/22/ER Draft Date of Exam:09/16/22 CT ABD/PELVIS WO(KIDNEY STONE) PROCEDURE: CT urinary tract, rule out kidney stone. TECHNIQUE: Multiple contiguous axial images were obtained through the abdomen and pelvis without the use of intravenous contrast. Auto Exposure Controls were utilized during the CT exam to meet ALARA standards for radiation dose reduction. INDICATION: Right-sided abdominal pain. Back pain. COMPARISON: 03/25/2016. FINDINGS: The heart is unremarkable. Atelectasis is seen in the lung bases. No evidence of renal calculi or hydronephrosis. The urinary bladder is nondistended. There is hepatic steatosis. The gallbladder surgically absent. The spleen, pancreas, and adrenal glands have a normal noncontrast CT appearance. There is no pathologically enlarged mesenteric or retroperitoneal adenopathy. The appendix is fluid-filled and dilated measuring 1.0 cm. Appendicolith is seen within the neck of the appendix. There is periappendicular fat stranding. A small amount of free fluid is seen in the abdomen and pelvis. No free air. No acute osseous abnormalities. There is calcified aortic and iliac atherosclerotic plaque without aneurysm. There is no free air, loculated collection, or adenopathy in the pelvis. IMPRESSION: 1. Acute appendicitis with periappendicular fat stranding and small amount of free fluid in the abdomen and pelvis. No aracelis perforation or abscess is seen at this time. Recommend surgical consultation. 2. Hepatic steatosis. Dictated on workstation # [id number] Dict: 09/16/22 1637 Trans: 09/16/22 1645 CV [id number] Interpreted by: MILDRED ALAS DO Electronically signed by: Departure Communication (Admissions) Time/Spoke to Admitting Phy: 17:[address] Nevarez (surgery) Impression Primary Impression: Acute appendicitis Qualified Codes: K35.30 - Acute appendicitis with localized peritonitis, without perforation or gangrene Disposition: ADMITTED INPATIENT Condition: Stable Admissions Decision to Admit Reason: Admit from ER (General) Decision to Admit/Date: Sep 16, 2022 Time/Decision to Admit Time: 17:04 Departure-Patient Inst. Referrals: JAYDEN AGUAYO MACHINE PACKAGING TECHNICIAN (PCP/Family) Primary Care Physician Scripts Amoxicillin (Amoxicillin) 875 Mg Tablet 875 MG PO BID, #14 TAB Prov: JILLIAN SCHMIDT MD 09/18/22 Hydrocodone/Acetaminophen (Hydrocodone-Acetamin 7.5-325) 7.5 Mg-325 Mg Tablet 1 EACH PO Q4H PRN for PAIN-BREAKTHROUGH, #30 TAB Prov: JILLIAN SCHMIDT MD 09/18/22 SOBEIDA TAYLOR MD Sep 16, 2022 14:24
[2022-09-16 14:45] LABS: BASOPHILS % (AUTO) 0 % (0-10); EOSINOPHILS # (AUTO) 0.1 10^3/uL (0.0-0.3); EOSINOPHILS % (AUTO) 0 % (0-10); HEMATOCRIT 48 % (35-52); HEMOGLOBIN 15.8 g/dL (11.5-16.0); LYMPHOCYTES # (AUTO) 2.9 10^3/uL (1.0-4.0); LYMPHOCYTES % (AUTO) 21 % (12-44); MEAN CORPUSCULAR HEMOGLOBIN 29 pg (25-34); MEAN CORPUSCULAR HGB CONC 33 g/dL (32-36); MEAN CORPUSCULAR VOLUME 89 fL (80-99); MEAN PLATELET VOLUME 9.8 fL (9.0-12.2); MONOCYTES # (AUTO) 0.7 10^3/uL (0.0-1.0); MONOCYTES % (AUTO) 5 % (0-12); NEUTROPHILS # (AUTO) 9.9 10^3/uL (1.8-7.8); NEUTROPHILS % (AUTO) 73 % (42-75); PLATELET COUNT 280 10^3/uL (130-400); WHITE BLOOD COUNT 13.7 10^3/uL (4.3-11.0)
[2022-09-16] MEDS ORDERED: KETOROLAC 30 MG/ML VIAL IVP ONE (14:45)
[2022-09-16 14:48] LABS: POTASSIUM 4.1 MMOL/L (3.6-5.0)
[2022-09-16 14:50] LABS: CALCIUM 10.3 MG/DL (8.5-10.1)
[2022-09-16 14:54] LABS: CREATININE SERUM 0.96 MG/DL (0.60-1.30)
[2022-09-16] MEDS ORDERED: NS IV 1000 ML 1,000 ML IV SCH (15:15)
[2022-09-16 15:40] LABS: BILIRUBIN,URINE NEGATIVE (NEGATIVE); CLARITY,URINE CLOUDY; COLOR,URINE YELLOW; GLUCOSE, URINE (UA) 3+ (NEGATIVE); KETONES,URINE NEGATIVE (NEGATIVE); LEUKOCYTE ESTERASE ,URINE NEGATIVE (NEGATIVE); NITRITE,URINE POSITIVE (NEGATIVE); PROTEIN,URINE NEGATIVE (NEGATIVE)
[2022-09-16] MEDS ORDERED: NS IV 1000 ML 1,000 ML IV STA (15:40)
[2022-09-16 15:54] LABS: BACTERIA,URINE MODERATE /HPF
[2022-09-16] MEDS ORDERED: cefTRIAXone IV/IM 1,000 MG in NS (IVPB) 50 ML IV ONE (16:30)
[2022-09-16] MEDS ORDERED: fentaNYL INJ 100 MCG/2 ML AMP IVP ONE (16:30)
--- NOTE | 2022-09-16 16:45 | Diagnostic Imaging Report ---
PROCEDURE: CT urinary tract, rule out kidney stone. TECHNIQUE: Multiple contiguous axial images were obtained through the abdomen and pelvis without the use of intravenous contrast. Auto Exposure Controls were utilized during the CT exam to meet ALARA standards for radiation dose reduction. INDICATION: Right-sided abdominal pain. Back pain. COMPARISON: 03/25/2016. FINDINGS: The heart is unremarkable. Atelectasis is seen in the lung bases. No evidence of renal calculi or hydronephrosis. The urinary bladder is nondistended. There is hepatic steatosis. The gallbladder surgically absent. The spleen, pancreas, and adrenal glands have a normal noncontrast CT appearance. There is no pathologically enlarged mesenteric or retroperitoneal adenopathy. The appendix is fluid-filled and dilated measuring 1.0 cm. Appendicolith is seen within the neck of the appendix. There is periappendicular fat stranding. A small amount of free fluid is seen in the abdomen and pelvis. No free air. No acute osseous abnormalities. There is calcified aortic and iliac atherosclerotic plaque without aneurysm. There is no free air, loculated collection, or adenopathy in the pelvis. IMPRESSION: 1. Acute appendicitis with periappendicular fat stranding and small amount of free fluid in the abdomen and pelvis. No aracelis perforation or abscess is seen at this time. Recommend surgical consultation. 2. Hepatic steatosis. Dictated by: Dictated on workstation # [id number]
[2022-09-16] MEDS ORDERED: LIDOCAINE/EPI 1%-1:100,000 (XYLOCAINE) 20ML ONE (17:22)
--- NOTE | 2022-09-16 17:24 | Consultation - Surgery ---
History of Present Illness History of Present Illness Patient Consulted On(petty/time) 09/16/22 17:19 Time Seen by Provider: 17:06 History of Present Illness Surgery asked to consult regarding abdominal pain, Appendicitis. HPI per ED: Patient is a 52-year-old female who I suspect has a history of intellectual disability, presents to the emergency room with a chief complaint of lower abdominal pain. Patient states that she has had flulike symptoms over the course of the last week. She has had congestion, cough, nausea and diarrhea. She states the diarrhea is stopped today, she had a normal bowel movement this morning. She states she thinks it may burn a little when she u rinates. She is not nauseous. Her sister accompanies her and states that the pain started this afternoon. The patient had a scheduled follow-up appointment with her primary care physician however when her sister saw that she appeared to be in so much pain they decided to come to the emergency room. Only prior abdominal surgery is a cholecystectomy. She denies known fevers or chills. Nothing makes the pain any better or any worse. She did take 1 Tylenol at 1230 this afternoon without any relief of symptoms. She states the pain is located in the left lower quadrant and seems to radiate into her back. Sister states her abdomen looks distended. Patient states she does not know if she has ever had a kidney stone. Timing/Duration: 1-3 Hours Severity/Quality: Severe, Sharp Location: LLQ Radiation: Back Activities at Onset: None When I spoke to pt and her family they stated they were worried it might be appendix, "but she didn't have a fever". Pt states she has never had pain like this before. Allergies and Home Medications Allergies Coded Allergies: Penicillins (Verified Allergy, Mild, RASH AROUND MOUTH, 04/24/18) Patient Home Medication List Home Medication List Reviewed: Yes Albuterol Sulfate (Ventolin Hfa) 1 Puff Puff, 2 PUFF IH Q4H PRN for SHORTNESS OF BREATH, (Reported) Entered as Reported by: VALERIE MON on 08/30/17 1421 Amlodipine Besylate/Benazepril (Amlodipine-Benazepril 5-20 mg) 1 Each Capsule, 1 EACH PO DAILY, (Reported) Entered as Reported by: LEV ROCHA on 02/08/16 1916 Fluticasone Propionate (Flonase Allergy Relief) 9.9 Ml [place].susp, 1 SPRAY NS DAILY, (Reported) Entered as Reported by: VALERIE MON on 08/30/17 1421 Fluticasone/Vilanterol (Breo Ellipta 200-25 Mcg INH) 1 Each Blst.w.dev, 1 EACH IH DAILY, (Reported) Entered as Reported by: VALERIE MON on 04/24/18 0904 Glipizide (Glipizide) 5 Mg Tablet, 5 MG PO BID, (Reported) Entered as Reported by: VALERIE MON on 04/08/16 1014 Hydrocodone Bit/Acetaminophen (Lortab 5 Mg Tablet) 1 Tab Tab, 1 TAB PO Q4H PRN Prescribed by: TOÑO CHURCHILL on 09/01/17 0904 Insulin Aspart (Novolog) 100 Unit/1 Ml Susp, 20 UNIT SQ AC, (Reported) Entered as Reported by: VALERIE MON on 04/24/18 0852 Insulin Determir (Levemir) 1,000 Units/10 Ml Soln, 72 UNITS SQ BID, (Reported) Entered as Reported by: VALERIE MON on 04/08/16 1014 Loratadine (Loratadine) 10 Mg Tablet, 10 MG PO DAILY, (Reported) Entered as Reported by: VALERIE MON on 04/08/16 1014 Metformin HCl (Metformin HCl) 1,000 Mg Tablet, 1,000 MG PO BID, (Reported) Entered as Reported by: VALERIE MON on 04/08/16 1014 Montelukast Sodium (Montelukast Sodium) 10 Mg Tablet, 10 MG PO DAILY, (Reported) Entered as Reported by: VALERIE MON on 04/08/16 1014 Simvastatin (Simvastatin) 10 Mg Tablet, 10 MG PO DAILY, (Reported) Entered as Reported by: VALERIE MON on 08/30/17 1426 Past Swmpexo-Wdfjso-Abqssn Hx Patient Social History Smoking Status: Never a Smoker Recent Hopitalizations: No Alcohol Use?: No Immunizations Up To Date Tetanus Booster (TDap): Less than 5yrs PED Vaccines UTD: No Date of Influenza Vaccine: Dec 12, 2017 Seasonal Allergies Seasonal Allergies: Yes Surgeries History of Surgeries: Yes (GALLBLADDER SURGERY, HEART CATH, COLONOSCOPY, LIPOMA) Surgeries: Gallbladder Respiratory History of Respiratory Disorde: Yes Respiratory Disorders: Asthma, Chronic Bronchitis Cardiovascular History of Cardiac Disorders: Yes Cardiac Disorders: Hypertension Neurological History of Neurological Disord: Yes Neurological Disorders: Traumatic Brain Injury, Vertigo Reproductive System Hx Reproductive Disorders: No Sexually Transmitted Disease: No SENIOR VISUAL DESIGNER History: Hysterectomy Genitourinary History of Genitourinary Disor: No Gastrointestinal History of Gastrointestinal Di: Yes Gastrointestinal Disorders: Gastroesophageal Reflux Musculoskeletal History of Musculoskeletal Dis: Yes (KNEE) Musculoskeletal Disorders: Arthritis Endocrine History of Endocrine Disorders: Yes Endocrine Disorders: Diabetes, Insulin dep HEENT History of HEENT Disorders: Yes (GLASSES) Loss of Vision: Bilateral Hearing Impairment: Denies Cancer History of Cancer: No Psychosocial History of Psychiatric Problem: No Integumentary History of Skin or Integumenta: No Skin/Integumentary Disorders: Recent Skin Changes Blood Transfusions History of Blood Disorders: No Adverse Reaction to a Blood Tr: No (N/A) Family Medical History Significant Family History: Heart Disease (Father of heart disease), Diabetes Review of Systems-General Constitutional: No chills, No diaphoresis; malaise EENTM: No blurred vision, No mouth swelling, No epistaxis Respiratory: No cough, No dyspnea on exertion, No short of breath Cardiovascular: No chest pain, No palpitations Gastrointestinal: abdominal pain; No heartburn, No jaundice; nausea, vomiting Genitourinary: No dysuria, No frequency, No hematuria Musculoskeletal: No joint pain, No muscle pain, No muscle cramps Skin: No change in color, No change in hair/nails Psychiatric/Neurological: Denies Anxiety, Denies Depressed, Denies Tremors Physical Exam-General Problems Physical Exam Vital Signs Vital Signs - First Documented 09/16/22 14:18 Temp 36.8 Pulse 87 Resp 22 B/P (MAP) 147/88 (107) Pulse Ox 99 O2 Delivery Room Air Capillary Refill : Less Than 3 Seconds General Appearance: mild distress (secondary to pain), obese Eyes: Bilateral Eye PERRL, Bilateral Eye Other (left eye deviates laterally) HEENT: pharynx normal; No scleral icterus (R), No scleral icterus (L); other (poor dentition) Neck: non-tender, supple Respiratory: lungs clear, normal breath sounds, no respiratory distress, no accessory muscle use Cardiovascular: regular rate, rhythm, no murmur Gastrointestinal: soft, no organomegaly, tenderness (right side), hernia (umbilical) Rectal: deferred Back: no CVA tenderness, no vertebral tenderness Extremities: no pedal edema, no calf tenderness Neurologic/Psychiatric: alert, normal mood/affect Skin: normal color, warm/dry Lymphatic: no adenopathy (neck, axilla or groin) Data Review Labs Laboratory Tests 09/16/22 14:25: White Blood Count 13.7H, Red Blood Count 5.39H, Hemoglobin 15.8, Hematocrit 48, Mean Corpuscular Volume 89, Mean Corpuscular Hemoglobin 29, Mean Corpuscular Hemoglobin Concent 33, Red Cell Distribution Width 14.1, Platelet Count 280, Mean Platelet Volume 9.8, Immature Granulocyte % (Auto) 0, Neutrophils (%) (Auto) 73, Lymphocytes (%) (Auto) 21, Monocytes (%) (Auto) 5, Eosinophils (%) (Auto) 0, Basophils (%) (Auto) 0, Neutrophils # (Auto) 9.9H, Lymphocytes # (Auto) 2.9, Monocytes # (Auto) 0.7, Eosinophils # (Auto) 0.1, Basophils # (Auto) 0.0, Immature Granulocyte # (Auto) 0.1, Sodium Level 140, Potassium Level 4.1, Chloride Level 99, Carbon Dioxide Level 26, Anion Gap 15H, Blood Urea Nitrogen 13, Creatinine 0.96, Estimat Glomerular Filtration Rate 72, BUN/Creatinine Ratio 14, Glucose Level 183H, Calcium Level 10.3H 09/16/22 15:27: Urine Color YELLOW, Urine Clarity CLOUDY, Urine pH 6.0, Urine Specific [place] 1.010L, Urine Protein NEGATIVE, Urine Glucose (UA) 3+H, Urine Ketones NEGATIVE, Urine Nitrite POSITIVEH, Urine Bilirubin NEGATIVE, Urine Urobilinogen 0.2, Urine Leukocyte Esterase NEGATIVE, Urine RBC (Auto) NEGATIVE, Urine RBC NONE, Urine WBC 2-5, Urine Squamous Epithelial Cells 2-5, Urine Crystals NONE, Urine Bacteria MODERATEH, Urine Casts NONE, Urine Mucus NEGATIVE, Urine Culture Indicated YES Radiology Signed Date of Exam:09/16/22 CT ABD/PELVIS WO(KIDNEY STONE) PROCEDURE: CT urinary tract, rule out kidney stone. TECHNIQUE: Multiple contiguous axial images were obtained through the abdomen and pelvis without the use of intravenous contrast. Auto Exposure Controls were utilized during the CT exam to meet ALARA standards for radiation dose reduction. INDICATION: Right-sided abdominal pain. Back pain. COMPARISON: 03/25/2016. FINDINGS: The heart is unremarkable. Atelectasis is seen in the lung bases. No evidence of renal calculi or hydronephrosis. The urinary bladder is nondistended. There is hepatic steatosis. The gallbladder surgically absent. The spleen, pancreas, and adrenal glands have a normal noncontrast CT appearance. There is no pathologically enlarged mesenteric or retroperitoneal adenopathy. The appendix is fluid-filled and dilated measuring 1.0 cm. Appendicolith is seen within the neck of the appendix. There is periappendicular fat stranding. A small amount of free fluid is seen in the abdomen and pelvis. No free air. No acute osseous abnormalities. There is calcified aortic and iliac atherosclerotic plaque without aneurysm. There is no free air, loculated collection, or adenopathy in the pelvis. IMPRESSION: 1. Acute appendicitis with periappendicular fat stranding and small amount of free fluid in the abdomen and pelvis. No aracelis perforation or abscess is seen at this time. Recommend surgical consultation. 2. Hepatic steatosis. Dictated by: Dictated on workstation # [id number] Dict: 09/16/22 1637 Trans: 09/16/22 1647 [facility] [id number] Interpreted by: MILDRED ALAS DO Electronically signed by: MILDRED ALAS DO 09/16/22 1647 Assessment/Plan Assessment/Plan Assessment/Plan Acute Appendicitis Morbid Obesity DM Pt has acute appendicitis; I discussed case with ER physician and went over CT images myself. She will need to go to the OR for Laparoscopic Appendectomy, possible open and all other indicated procedures. I discussed this with pt, her sister and her mother. We went over risks and complications not limited to pain, bleeding, infection, scar, damage to bowel and need for further procedure. Will continue IV fluids, pain control, start IV ABX and get consent. I did talk about possible drain being left in place and possibly staying overnight. All questions answered to their satisfaction. TWILA JAIME DO Sep 16, 2022 17:24
[2022-09-16] MEDS ORDERED: LIDOCAINE PF 2% 5 ML (XYLOCAINE) VIAL ONE (17:26)
[2022-09-16] MEDS ORDERED: MIDAZOLAM 2 MG/2 ML (VERSED) VIAL ONE (17:26)
[2022-09-16] MEDS ORDERED: proPOfol 200 MG/20 ML (DIPRIVAN) VIAL IV ONE (17:26)
[2022-09-16] MEDS ORDERED: fentaNYL INJ 100 MCG/2 ML AMP ONE ×2 (17:26→19:03)
[2022-09-16] MEDS: LACTATED RINGERS 1,000 ML IV PRN ×2 (17:41→19:05)
[2022-09-16] MEDS ORDERED: LIDOCAINE/EPI 1%-1:100,000 (XYLOCAINE) 20ML INJ ONE (18:02)
[2022-09-16] MEDS ORDERED: SUCCINYLCHOLINE INJ 20 MG/1 ML 10 ML VIAL ONE (18:32)
[2022-09-16] MEDS ORDERED: ROCURONIUM 50 MG/5 ML (ZEMURON) VIAL IV ONE (18:32)
[2022-09-16] MEDS ORDERED: ONDANSETRON 4 MG/2 ML (SDV) Z0FRAN IVP PRN ×2 (20:00→20:30)
[2022-09-16] MEDS ORDERED: morphine INJ 10 MG/ML 1ML (SYR OR VIAL) IVP ONE (20:00)
[2022-09-16] MEDS ORDERED: HYDROmorphone 2 MG/ML VIAL (DILAUDID) IV ONE (20:00)
[2022-09-16] MEDS ORDERED: SEVOFLURANE (ULTANE) 15 ML INHAL SOLN ONE (20:03)
[2022-09-16] MEDS ORDERED: ONDANSETRON 4 MG/2 ML (SDV) Z0FRAN ONE (20:03)
[2022-09-16] MEDS ORDERED: KETOROLAC 30 MG/ML VIAL ONE (20:03)
[2022-09-16] MEDS ORDERED: SUGAMMADEX 500 MG/5 ML VIAL (BRIDION) IV ONE (20:03)
[2022-09-16] MEDS ORDERED: NS (IVPB) 50 ML ONE (21:30)
[2022-09-16] MEDS ORDERED: morphine INJ 4 MG/ML 1 ML (VIAL/SYRINGE) ONE (21:30)
[2022-09-16] MEDS ORDERED: cefTRIAXone 1,000 MG VIAL (for IV or IM) ONE (21:30)
[2022-09-16] MEDS ORDERED: metroNIDAZOLE 500MG/100ML IVPB 100 ML ONE (21:30)
[2022-09-16] MEDS ORDERED: NS (IVPB) 100 ML ONE (21:31)
[2022-09-16] MEDS: LACTATED RINGERS 1,000 ML IV SCH (21:48)
[2022-09-16] MEDS: metroNIDAZOLE 500MG/100ML IVPB 100 ML IV SCH (21:48)
[2022-09-16] MEDS: cefTRIAXone IV/IM 1,000 MG in NS (IVPB) 50 ML IV SCH (21:48)
[2022-09-16] MEDS: morphine INJ 4 MG/ML 1 ML (VIAL/SYRINGE) IVP PRN (21:49)
--- NOTE | 2022-09-16 22:10 | Progress Note-Post Operative ---
Post-Operative Progess Note Surgeon (s)/Leaf Tier (s) Surgeon TWILA JAIME DO Leaf Tier: none Pre-Operative Diagnosis Acute appendicitis Post-Operative Diagnosis Ruptured Necrotic Appendicitis Procedure & Operative Findings Date of Procedure 09/16/22 Procedure Performed/Findings PROCEDURE: Laparoscopic appendectomy. COMPLICATIONS: None. INDICATIONS: The patient is a 52 year old female who has been having right lower quadrant abdominal pain. Patient's exam consistent with appendicitis. I discussed risk and benefits of laparoscopic appendectomy and all indicated procedures with the possibility being a normal appendix. DESCRIPTION OF PROCEDURE: The patient was taken to the operating suite, prepped and draped in a sterile fashion. Timeout was performed. Local anesthetic was infiltrated just above the umbilicus and a #11-blade scalpel was used to make a skin incision. Cautery was used to dissect down to the fascia and scored. Kochers were used to grasp and elevate it and the abdomen was then entered. The balloon trocar was inserted into the abdomen and pneumoperitoneum was achieved. Under direct visualization of the laparoscope, a 5 mm trocar was placed in the left lower quadrant. Elected to place the 2nd 5mm port on the right side just above umbilical height. There was purulent fluid and inflamed intestines all over the abdomen. I also found a big adhesion in the RUQ from the previous open Bailey- cystectomy. I carefully started pushing the intestines apart, trying to find the appendix. I found the cecal cap and then found the proximal portion of the appendix, it was necrotic and had opened with small pieces of fecal material visible. I took a picture of this and then found a large amount of purulent fluid in the pelvis. I washed out the abdomen with copious amounts of normal saline. I continued to dissect out the appendix with blunt dissection and hydrodissetion. I was finally able to free up the appendix; it was inflamed and thickened. Next, I started coming across the mesoappendix with the Ligasure in a stepwise fashion until I was down at the base of the appendix and could see where it had almost fallen apart. Once at the base an Endo-PAYAL 2.5 stapler was then fired and it was then placed in an Endobag and removed through the 12 mm trocar site. I was a little con- cerned because there was not much tissue at the base and I was worried it might be friable. I looked very closely and think there was a good staple line across. I elected to place a 19 Armenian yoselin drain in the right paracolic gutter and into the pelvis. This came right across the base of the cecum as well. The abdomen was then irrigated and suctioned. No other pathology noted; but multiple pictures were taken. The abdomen was then desufflated and the trocars were removed. An 0 Vicryl figure of eight was placed and then tied close to close the 12 mm fascial defect. The skin was then closed using 4-0 Monocryl in a subcuticular fashion. The abdomen was then washed and dried and Skin Affix was placed over the incisions. The patient tolerated the procedure well without any com- plications and was taken to the recovery room in stable condition. Anesthesia Type GET Estimated Blood Loss Estimated blood loss (mL): less than 10 ml Specimens/Packing Specimens Removed appendix TWILA JAIME DO Sep 16, 2022 22:10
[2022-09-17] MEDS: morphine INJ 4 MG/ML 1 ML (VIAL/SYRINGE) IVP PRN ×3 (01:29→12:09)
[2022-09-17] MEDS: LACTATED RINGERS 1,000 ML IV SCH ×4 (04:04→23:15)
[2022-09-17] MEDS: metroNIDAZOLE 500MG/100ML IVPB 100 ML IV SCH (04:04)
[2022-09-17 04:56] VITALS: BP 99/66
[2022-09-17 08:21] VITALS: BP 106/69
[2022-09-17] MEDS: PANTOPRAZOLE 40 MG (PROTONIX) VIAL IVP SCH (08:30)
--- NOTE | 2022-09-17 08:53 | Anesthesia-General Post-Op ---
General Patient Condition Mental Status/LOC: Same as Preop Cardiovascular: Satisfactory Nausea/Vomiting: Absent Respiratory: Satisfactory Pain: Controlled Complications: Absent Post Op Complications Complications None Follow Up Care/Instructions Patient Instructions None needed. Anesthesia/Patient Condition Patient Condition Patient is doing well. She does C/O abdominal pain which is to be expected and has stable vital signs, no apparent adverse anesthesia problems. No complications reported per nursing. HU PENA DO Sep 17, 2022 08:53
[2022-09-17 11:05] LABS: BASOPHILS % (AUTO) 0 % (0-10); EOSINOPHILS % (AUTO) 0 % (0-10); HEMATOCRIT 41 % (35-52); HEMOGLOBIN 13.6 g/dL (11.5-16.0); LYMPHOCYTES % (AUTO) 14 % (12-44); MEAN CORPUSCULAR HEMOGLOBIN 29 pg (25-34); MEAN CORPUSCULAR HGB CONC 33 g/dL (32-36); MEAN CORPUSCULAR VOLUME 87 fL (80-99); MONOCYTES # (AUTO) 0.8 10^3/uL (0.0-1.0); MONOCYTES % (AUTO) 6 % (0-12); NEUTROPHILS % (AUTO) 79 % (42-75); PLATELET COUNT 213 10^3/uL (130-400); WHITE BLOOD COUNT 13.8 10^3/uL (4.3-11.0)
[2022-09-17 11:27] LABS: ALBUMIN 3.4 GM/DL (3.2-4.5); BILIRUBIN,TOTAL 1.2 MG/DL (0.1-1.0); CALCIUM 8.3 MG/DL (8.5-10.1); CREATININE SERUM 0.99 MG/DL (0.60-1.30); POTASSIUM 3.8 MMOL/L (3.6-5.0); TOTAL PROTEIN 6.5 GM/DL (6.4-8.2)
--- NOTE | 2022-09-17 11:33 | Progress Note - Surgery ---
Subjective Time Seen by a Provider: 11:04 Subjective/Events-last exam Pt seen and examined, states she has some abdominal pain. However, she was able to go to the bathroom and would like to eat more. Review of Systems General: No Chills, No Night Sweats; Fatigue Pulmonary: No Dyspnea, No Cough Cardiovascular: No: Chest Pain, Palpitations Gastrointestinal: Abdominal Pain; No: Nausea, Vomiting Objective Exam Vital Signs Date Time Temp Pulse Resp B/P (MAP) Pulse Ox O2 Delivery O2 Flow Rate FiO2 09/17/22 08:21 36.1 90 20 106/69 (81) 89 Room Air 09/17/22 08:15 89 Room Air 2.00 09/17/22 04:56 36.5 74 18 99/66 (77) 93 Room Air 09/16/22 23:52 96 Room Air 09/16/22 23:16 36.0 89 18 95/63 (74) 99 Room Air 09/16/22 20:30 36.7 18 113/67 (82) 94 Room Air 09/16/22 20:25 Room Air 09/16/22 20:20 20 109/69 (82) 96 OxyMask 2.00 09/16/22 20:10 20 104/64 (77) 94 OxyMask 10 09/16/22 20:10 OxyMask 4.00 09/16/22 20:00 20 98/64 (75) 94 OxyMask 10 09/16/22 19:55 OxyMask 10 09/16/22 19:50 20 97/59 (72) 92 OxyMask 10 09/16/22 19:41 OxyMask 10 09/16/22 19:41 36.6 19 107/62 (77) 92 OxyMask 10 09/16/22 17:30 102 20 116/69 96 Room Air 09/16/22 14:18 36.8 87 22 147/88 (107) 99 Room Air I & O 09/17/22 07:00 Intake Total 1850 ml Output Total 680 ml Balance 1170 ml Capillary Refill : Less Than 3 Seconds General Appearance: Mild Distress (secondary to pain), Obese Respiratory: Lungs Clear (but poor effort), Normal Breath Sounds, No Accessory Muscle Use, No Respiratory Distress Cardiovascular: Regular Rate, Rhythm, No Murmur Gastrointestinal: soft, no organomegaly, tenderness (diffusely), hernia (umbilical), other (incisions c/d/i and KIT with serosanguinous fluid) Results Lab Laboratory Tests 09/16/22 14:25: White Blood Count 13.7H, Red Blood Count 5.39H, Hemoglobin 15.8, Hematocrit 48, Mean Corpuscular Volume 89, Mean Corpuscular Hemoglobin 29, Mean Corpuscular Hemoglobin Concent 33, Red Cell Distribution Width 14.1, Platelet Count 280, Mean Platelet Volume 9.8, Immature Granulocyte % (Auto) 0, Neutrophils (%) (Auto) 73, Lymphocytes (%) (Auto) 21, Monocytes (%) (Auto) 5, Eosinophils (%) (Auto) 0, Basophils (%) (Auto) 0, Neutrophils # (Auto) 9.9H, Lymphocytes # (Auto) 2.9, Monocytes # (Auto) 0.7, Eosinophils # (Auto) 0.1, Basophils # (Auto) 0.0, Immature Granulocyte # (Auto) 0.1, Sodium Level 140, Potassium Level 4.1, Chloride Level 99, Carbon Dioxide Level 26, Anion Gap 15H, Blood Urea Nitrogen 13, Creatinine 0.96, Estimat Glomerular Filtration Rate 72, BUN/Creatinine Ratio 14, Glucose Level 183H, Calcium Level 10.3H 09/16/22 15:27: Urine Color YELLOW, Urine Clarity CLOUDY, Urine pH 6.0, Urine Specific [place] 1.010L, Urine Protein NEGATIVE, Urine Glucose (UA) 3+H, Urine Ketones NEGATIVE, Urine Nitrite POSITIVEH, Urine Bilirubin NEGATIVE, Urine Urobilinogen 0.2, Urine Leukocyte Esterase NEGATIVE, Urine RBC (Auto) NEGATIVE, Urine RBC NONE, Urine WBC 2-5, Urine Squamous Epithelial Cells 2-5, Urine Crystals NONE, Urine B acteria MODERATEH, Urine Casts NONE, Urine Mucus NEGATIVE, Urine Culture Indicated YES, Urine Test NEGATIVE 09/16/22 19:46: Glucometer 204H 09/16/22 21:00: Glucometer 216H 09/17/22 10:52: White Blood Count 13.8H, Red Blood Count 4.67, Hemoglobin 13.6, Hematocrit 41, Mean Corpuscular Volume 87, Mean Corpuscular Hemoglobin 29, Mean Corpuscular H emoglobin Concent 33, Red Cell Distribution Width 14.3, Platelet Count 213, Mean Platelet Volume 10.0, Immature Granulocyte % (Auto) 0, Neutrophils (%) (Auto) 79H, Lymphocytes (%) (Auto) 14, Monocytes (%) (Auto) 6, Eosinophils (%) (Auto) 0, Basophils (%) (Auto) 0, Neutrophils # (Auto) 11.0H, Lymphocytes # (Auto) 2.0, Monocytes # (Auto) 0.8, Eosinophils # (Auto) 0.0, Basophils # (Auto) 0.0, Immature Granulocyte # (Auto) 0.1, Sodium Level 136, Potassium Level 3.8, Chl oride Level 105, Carbon Dioxide Level 19L, Anion Gap 12, Blood Urea Nitrogen 15, Creatinine 0.99, Estimat Glomerular Filtration Rate 69, BUN/Creatinine Ratio 15, Glucose Level 252H, Calcium Level 8.3L, Corrected Calcium 8.8, Total Bilirubin 1.2H, Aspartate Amino Transf (AST/SGOT) 24, Alanine Aminotransferase (ALT/SGPT) 22, Alkaline Phosphatase 80, Total Protein 6.5, Albumin 3.4 09/17/22 11:16: Glucometer 216H Microbiology 09/16/22 Urine Culture - Preliminary, Resulted Probable E.coli Gram Pos Mixed Bacterial Ca Assessment/Plan Assessment/Plan Assessment/Plan S/P Lap Appy for ruptured Appendicitis Morbid Obesity DM Will start DM diet, encourage IS use and ambulation. Continue IV ABX and pain c ontrol, will switch to PO ABX tomorrow and then hopefully home. Will monitor KIT drain. TWILA JAIME DO Sep 17, 2022 11:33
[2022-09-17] MEDS ORDERED: INSU200I4 SC (11:41)
[2022-09-17] MEDS ORDERED: EMPA1TAB15 PO (11:41)
[2022-09-17] MEDS ORDERED: FLUT200B PUFF (11:41)
[2022-09-17] MEDS ORDERED: DULA4.5P SQ (11:41)
[2022-09-17] MEDS ORDERED: TRZ50T PO (11:41)
[2022-09-17] MEDS ORDERED: LISI40TA9 PO (11:41)
[2022-09-17] MEDS ORDERED: MV-M1TAB57 PO (11:41)
[2022-09-17] MEDS ORDERED: OMEP20CA18 PO (11:41)
[2022-09-17] MEDS ORDERED: HYDR25TA4 PO (11:41)
[2022-09-17] MEDS ORDERED: ACET-2267 PO (11:41)
[2022-09-17] MEDS ORDERED: ASPI325T32 PO (11:41)
[2022-09-17] MEDS ORDERED: INSU100I48 SC (11:41)
[2022-09-17] MEDS ORDERED: CELE-63 PO (11:41)
[2022-09-17] MEDS ORDERED: NF-ALLE180 PO (11:41)
--- NOTE | 2022-09-17 11:41 | Discharge Inst-Surgical ---
Discharge Inst-Surgical Depart Medication/Instructions New, Converted or Re-Newed RX: Transmitted to Pharmacy Patient Instructions Follow up Appt: Make appointment for 1 week. [phone] Instructions: No lifting greater than 20 pounds. No strenuous activity. May shower in 24 hours, no tub bath or soaking. Use incentive spirometer at home as directed. No Smoking Skin/Wound Care: May remove bandages in am. You need to leave the Dermabond on incision it will fall off on it's own. Symptoms to Report: Appetite Changes, Extremity Discoloration, Numbness/Tingling, Swelling Increased, Bleeding Excessive, Eyesight Changes, Pain Increased, Urine Color Change, Constipation(Persistent), Fever over 101 degree F, Pain/Pressure in chest, Urinating Difficulty, Cough Up/Vomit Blood, Heart Beat Irreg/Pounding, Pain/Pressure in jaw, Cramps in feet or legs, Lightheadedness, Pain/Pressure in shoulder, Diarrhea(Persistent), Memory Changes Suddenly, Questions/Concerns, Weight gain consecutive days, Dizziness/Fainting, Nausea/Vomiting, Shortness of Breath, Weight gain over 2 pounds If questions or concerns contact your physician Or seek help at emergency department. Activity Activity as Tolerated: Yes Activity Instructions: Avoid Stress to Incision Driving Instructions: No Driving/Refer to Dr. Griffin Discharge Diet: ADA Diet Diet After 24 Hours: Clear Liquid if Nauseous If Any Problems/Questions/Issu: Contact Your Physician, Go to Emergency Room Skin/Wound Care Infection Signs and Symptoms: Increased Redness, Foul Odor of Wound, Increased Drainage, Skin Itchy or Has a Rash, Increased Swelling, Temperature Above 101 F Wound Care Comment: KIT drain teaching and recording Bathing Instructions: TWILA Ulrich DO Sep 17, 2022 11:41
[2022-09-17 12:26] VITALS: BP 97/61
[2022-09-17 16:22] VITALS: BP 105/70
[2022-09-17] MEDS: HYDROcodone/APAP 5 MG/325 MG (LORTAB) TAB PO PRN ×2 (16:46→22:11)
[2022-09-17 19:27] VITALS: BP 107/71
[2022-09-17] MEDS: cefTRIAXone IV/IM 1,000 MG in NS (IVPB) 50 ML IV SCH (19:57)
[2022-09-17 23:16] VITALS: BP 118/58
[2022-09-18] MEDS: HYDROcodone/APAP 5 MG/325 MG (LORTAB) TAB PO PRN (04:44)
[2022-09-18] MEDS: PANTOPRAZOLE 40 MG (PROTONIX) VIAL IVP SCH (08:10)
[2022-09-18 08:13] VITALS: BP 138/84
[2022-09-18] MEDS: LACTATED RINGERS 1,000 ML IV SCH (08:52)
--- NOTE | 2022-09-18 10:25 | Progress Note ---
Subjective Date Seen by a Provider: Sep 18, 2022 Time Seen by a Provider: 09:50 Subjective/Events-last exam Patient seen with Dr. Jordan. Patient reports doing ok. Denies any issues. Tolerating diet and ambulating. Objective Exam Vital Signs Date Time Temp Pulse Resp B/P (MAP) Pulse Ox O2 Delivery O2 Flow Rate FiO2 09/18/22 08:13 36.0 92 17 138/84 (102) 92 Room Air 09/18/22 08:06 Room Air 09/17/22 23:16 36.3 89 16 118/58 (78) 91 Room Air 09/17/22 19:57 Room Air 09/17/22 19:27 36.0 88 18 107/71 (83) 92 Room Air 09/17/22 16:22 36.1 84 19 105/70 (82) 94 Room Air 09/17/22 12:26 35.5 89 20 97/61 (73) 92 Room Air I & O 09/18/22 07:00 Intake Total 2690 ml Output Total 1815 ml Balance 875 ml Capillary Refill : Less Than 3 Seconds General Appearance: No Apparent Distress, WD/WN, Obese Neck: Normal Inspection, Supple Respiratory: No Accessory Muscle Use, No Respiratory Distress Gastrointestinal: normal bowel sounds, non tender, soft, other (Incisions C/D/I, Right KIT drain with SS drainage) Extremity: Normal Inspection, Normal Range of Motion Neurologic/Psychiatric: Alert, Oriented x3 Skin: Normal Color, Warm/Dry Results Lab Laboratory Tests 09/17/22 10:52: White Blood Count 13.8H, Red Blood Count 4.67, Hemoglobin 13.6, Hematocrit 41, Mean Corpuscular Volume 87, Mean Corpuscular Hemoglobin 29, Mean Corpuscular Hemoglobin Concent 33, Red Cell Distribution Width 14.3, Platelet Count 213, Mean Platelet Volume 10.0, Immature Granulocyte % (Auto) 0, Neutrophils (%) (Auto) 79H, Lymphocytes (%) (Auto) 14, Monocytes (%) (Auto) 6, Eosinophils (%) (Auto) 0, Basophils (%) (Auto) 0, Neutrophils # (Auto) 11.0H, Lymphocytes # (Auto) 2.0, Monocytes # (Auto) 0.8, Eosinophils # (Auto) 0.0, Basophils # (Auto) 0.0, Immature Granulocyte # (Auto) 0.1, Sodium Level 136, Potassium Level 3.8, Chloride Level 105, Carbon Dioxide Level 19L, Anion Gap 12, Blood Urea Nitrogen 15, Creatinine 0.99, Estimat Glomerular Filtration Rate 69, BUN/Creatinine Ratio 15, Glucose Level 252H, Calcium Level 8.3L, Corrected Calcium 8.8, Total Bilirubin 1.2H, Aspartate Amino Transf (AST/SGOT) 24, Alanine Aminotransferase (ALT/SGPT) 22, Alkaline Phosphatase 80, Total Protein 6.5, Albumin 3.4 09/17/22 11:16: Glucometer 216H Microbiology 09/16/22 Urine Culture - Final, Complete Escherichia coli Gram Pos Mixed Bacterial Ca Assessment/Plan Assessment/Plan Assess & Plan/Chief Complaint S/P Lap Appy for ruptured Appendicitis, morbid obesity, DM VSS WBC 13.8 Tolerating diet Encourage IS use and ambulation Continue PO ABX KIT drain Ok to DC home and follow up with Dr. Nevarez in 1 week JENAE JUNIOR EXPLOSIVE ORDNANCE DISPOSAL SPECIALIST Sep 18, 2022 10:25
[2022-09-18] MEDS ORDERED: HYDR-3817 PO (11:45)
[2022-09-18] MEDS ORDERED: AMOX875T2 PO (11:47)
[2022-09-18 13:22] VITALS: BP 138/84
== END 2022-09-18 13:22 | disposition home or self-care (01) | DRG 339 ==
LOC: EDUNIT# 14:15 → ER 14:17 → SDC 17:32 → 4TH 20:29
PROVIDERS: ADMIT Surgery; ATTEND Surgery
PROC: 0DTJ4ZZ Resection of Appendix, Percutaneous Endoscopic Approach (ICD-10-PCS; principal; 2022-09-16 17:41)
DX: K35.32 Acute appendicitis with perforation, localized peritonitis, and gangrene, without abscess (principal); Z68.41 Body mass index [BMI] 40.0-44.9, adult; E66.01 Morbid (severe) obesity due to excess calories; E11.9 Type 2 diabetes mellitus without complications
CPT/HCPCS: 36415; 74176; 80048; 80053; 81000; 82947; 84703; 85025; 87077; 87088; 87186; 94664